=== PATIENT | female | born 1965 | race Caucasian/White ===

== ENCOUNTER 2017-01-31 12:01 | Emergency (ER) | payer MEDICAID ==
[~2017-01-31] VITALS: Ht 157.5 cm; Wt 52.2 kg
[~2017-01-31 12:01] MED LIST: AUGMENTIN 875 M1 TAB PO; BACTRIM DS 8001 TA1 PO; DELTASONE20 MG; DILANTIN100 M1 PO; FOLIC ACID1 M1; NORCO 5/325 MG1 TAB PO; PROAIR HFA0.09 MG/Ac IH; PROVENTIL2.5 MG/3 M INH; ULTRAM50 MG PO; ZOFRAN4 M1 PO
[2017-01-31 12:24] VITALS: BP 114/74
--- NOTE | 2017-01-31 12:25 | NUR ---
PT BIBA TO BED 7 AT THIS TIME.
--- NOTE | 2017-01-31 12:34 | NUR ---
PT BIBA DUE TO SMELL OF ALCOHOL.FOUND PT ON THE STREET LAYING ON THE GROUND.STOPPED ALL MEDS.DENIES PAIN. HX: HTN,SEIZURES,HEART ATTACK,PSYCH.ISSUES.NEGATIVE MLAPSS FIELDPATIENT PRESENTS TO ED WITH.DENIES N/V/D; SKIN IS PINK/WARM/DRY; AAOX4; LUNGS CLEAR BL; HR EVEN AND REGULAR; PT DENIES ANY FEVER, CP, SOB, OR COUGH AT THIS TIME; PATIENT STATES PAIN OF 0/10 AT THIS TIME;PATIENT POSITIONED FOR COMFORT; HOB ELEVATED; BEDRAILS UP X2; BED DOWN. ER MD WILL BE NOTIFY.
--- NOTE | 2017-01-31 12:55 | NUR ---
PT SUDDENLY C/O BACK AND ABDOMINAL PAIN;PAIN SCALE OF 7/10;
[2017-01-31] MEDS ORDERED: KETOROLAC 60 MG/2 ML VIAL IM ONE (13:00)
[2017-01-31] MEDS ORDERED: PHENYTOIN 100 MG CAPER PO ONE (13:00)
[2017-01-31] MEDS ORDERED: MORPHINE SULFATE 4 MG/ML SYR IM ONE (13:40)
--- NOTE | 2017-01-31 13:55 | NUR ---
Patient discharged with v/s stable. Written and verbal after care instructions given and explained. Patient alert, oriented and verbalized understanding of instructions. Ambulatory with steady gait. All questions addressed prior to discharge. ID band removed. Patient advised to follow up with PMD. Rx of DILANTIN given. Patient educated on indication of medication including possible reaction and side effects. Opportunity to ask questions provided and answered.
[2017-01-31 13:59] VITALS: BP 115/56
[2017-03-17] MEDS ORDERED: PANTOPRAZOLE SO40 MG PO (17:05)
[2017-03-17] MEDS ORDERED: NATURE'S BLEND F1 M1 PO (17:05)
[2017-03-17] MEDS ORDERED: NATURE'S BLEND100 M2 PO (17:05)
[2017-03-17] MEDS ORDERED: LISINOPRIL5 M1 PO (17:05)
[2017-03-17] MEDS ORDERED: ATIVAN1 M1 PO (17:05)
[2017-03-17] MEDS ORDERED: DILANTIN100 M1 PO (17:05)
[2017-03-17] MEDS ORDERED: TAB-A-VITE1 TA3 PO (17:05)
== END 2017-01-31 13:55 | disposition home or self-care (01) ==
LOC: MED 12:01
DX: R07.89 Other chest pain (principal); R20.0 Anesthesia of skin; J45.909 Unspecified asthma, uncomplicated; K21.9 Gastro-esophageal reflux disease without esophagitis; I10 Essential (primary) hypertension; F17.210 Nicotine dependence, cigarettes, uncomplicated; Z90.89 Acquired absence of other organs
CPT/HCPCS: 93005; 96372; 99284; J1885; J2270

== ENCOUNTER 2017-02-02 00:55 | Emergency (ER) | payer MEDICAID ==
[~2017-02-02] VITALS: Ht 157.5 cm; Wt 49.9 kg
[2017-02-02 00:59] VITALS: BP 124/85
--- NOTE | 2017-02-02 01:38 | NUR ---
PT TAKEN TO OF
--- NOTE | 2017-02-02 01:40 | NUR ---
PT CAME HERE FOR MEDICATION REFILL, FOR SEIZURE, HIGH BLOOD PRESSURE, POTASSIUM , RANITIDINE
--- NOTE | 2017-02-02 01:43 | NUR ---
Dr. Patel evaluating patient
[2017-02-02] MEDS ORDERED: PHENYTOIN 100 MG CAPER PO ONE (01:50)
[2017-02-02 02:01] VITALS: BP 119/73
--- NOTE | 2017-02-02 02:03 | NUR ---
Patient discharged with v/s stable BY DR. GARCIA. Written and verbal after care instructions given and explained. Patient verbalized understanding. Ambulatory with steady gait. All questions addressed prior to discharge. Advised to follow up with PMD.
--- NOTE | 2017-02-02 02:08 | NUR ---
CALLED PT FAMILY. SPOKE TO FRACISCO KU TO HAT BLOCK MAKER PT 20MINS.
== END 2017-02-02 02:03 | disposition home or self-care (01) ==
LOC: MED 00:55
DX: Z76.0 Encounter for issue of repeat prescription (principal); I10 Essential (primary) hypertension; J45.909 Unspecified asthma, uncomplicated; K21.9 Gastro-esophageal reflux disease without esophagitis
CPT/HCPCS: 99283

== ENCOUNTER 2019-05-29 15:51 | Emergency (ER) | payer SELFPAY ==
[~2019-05-29] VITALS: Ht 157.5 cm; Wt 59.0 kg
[~2019-05-29 15:51] MED LIST changes: +ASPI-1205 PO; -AUGMENTIN 875 M1 TAB PO; -BACTRIM DS 8001 TA1 PO; +COLC0.6C PO; -DELTASONE20 MG; -DILANTIN100 M1 PO; -FOLIC ACID1 M1; +LISI5TAB18 PO; -NORCO 5/325 MG1 TAB PO; +PANT40EC PO; +PHEN100C3 PO; -PROAIR HFA0.09 MG/Ac IH; -PROVENTIL2.5 MG/3 M INH; +THIA100T34 PO; -ULTRAM50 MG PO; -ZOFRAN4 M1 PO
[2019-05-29 16:00] VITALS: BP 121/59
[2019-05-29] MEDS ORDERED: NACL 0.9% 1,000 ML IV ONE (16:10)
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
--- NOTE | 2019-05-29 17:51 | NUR ---
Srinivasa SPLICING MACHINE OPERATOR AUTOMATIC notified pt is demanding to be dc---although friendly with staff, she is decided she wants to go home now. full clear speech, 0riented to name place time n event
--- NOTE | 2019-05-29 17:57 | NUR ---
pt's at bedside---
[2019-05-29 18:01] VITALS: BP 132/81
--- NOTE | 2019-05-29 18:02 | NUR ---
Patient discharged with v/s stable. Written and verbal after care instructions given and explained. Patient alert, oriented and verbalized understanding of instructions. Ambulatory with steady gait. All questions addressed prior to discharge. ID band removed. Patient advised to follow up with PMD. Rx of dilantin given. Patient educated on indication of medication including possible reaction and side effects. Opportunity to ask questions provided and answered.
== END 2019-05-29 18:02 | disposition home or self-care (01) ==
LOC: MED 15:51
DX: F10.129 Alcohol abuse with intoxication, unspecified (principal); R56.9 Unspecified convulsions; J45.909 Unspecified asthma, uncomplicated; I10 Essential (primary) hypertension; F17.210 Nicotine dependence, cigarettes, uncomplicated; Z86.79 Personal history of other diseases of the circulatory system; Z86.73 Personal history of transient ischemic attack (TIA), and cerebral infarction without residual deficits; Z79.82 Long term (current) use of aspirin; Z79.899 Other long term (current) drug therapy; Z90.89 Acquired absence of other organs
CPT/HCPCS: 96360; 99283; J7030

== ENCOUNTER 2019-08-15 10:46 | Inpatient (IN) | payer MEDICAID ==
[~2019-08-15] VITALS: Ht 157.5 cm; Wt 51.7 kg
[2019-08-15 10:57] VITALS: BP 135/99
--- NOTE | 2019-08-15 10:59 | NUR ---
54 Y/O FEMALE PRESENTING WITH C/C OF CHEST PAIN X1 DAY. PER PT ONSET TODAY IN THE AM; QUALITY PRESSURE; RADIATES TO UPPER EXTREMITIES; SEVERITY 06/21. PER PT NKA. MEDICAL HX OF SZ AND CARDIAC PROBLEMS. TAKES MEDS ON REG BASIS BUT CANNOT STATE WHICH ONES SHE TAKES. PT DENIES N/V/D. SIDE RAIL X1.
--- NOTE | 2019-08-15 11:07 | NUR ---
MD BYRNE AT BEDSIDE
[2019-08-15 11:36] LABS: BASOPHILS # (AUTO) 0.1 K/uL (0.00-0.22); BASOPHILS % (AUTO) 2.4 % (0.0-2.0); EOSINOPHILS # (AUTO) 0.1 K/uL (0-0.4); EOSINOPHILS % (AUTO) 1.1 % (0.0-4.0); HEMOGLOBIN 12.3 g/dL (12.0-16.0); LYMPHOCYTES # (AUTO) 0.6 K/uL (2.5-16.5); LYMPHOCYTES % (AUTO) 11.4 % (20.5-51.1); MEAN CORPUSCULAR HEMOGLOBIN 33 pg (27-31); MEAN CORPUSCULAR HGB CONC 33 g/dL (33-37); MEAN CORPUSCULAR VOLUME 100.6 fL (80-94); MONOCYTES # (AUTO) 0.4 K/uL (0.8-1.0); MONOCYTES % (AUTO) 7.2 % (1.7-9.3); NEUTROPHILS # (AUTO) 4.1 K/uL (1.8-7.7); NEUTROPHILS % (AUTO) 77.9 % (42.2-75.2); PLATELET COUNT (AUTO) 201 K/uL (140-450); RED BLOOD CELL COUNT(AUTO) 3.68 MIL/uL (4.20-5.40); WHITE BLOOD COUNT (AUTO) 5.3 K/uL (4.8-10.8)
[2019-08-15 11:57] LABS: LIPASE 126 U/L (73-393)
[2019-08-15 12:02] LABS: ALBUMIN 3.9 g/dL (3.4-5.0); ANION GAP 23.2 (8-16); CARBON DIOXIDE 21.2 mmol/L (21-32); CREATININE 0.5 mg/dL (0.6-1.3); POTASSIUM 3.4 mmol/L (3.5-5.1); TOTAL BILIRUBIN 0.8 mg/dL (0.0-1.0)
--- NOTE | 2019-08-15 12:02 | NUR ---
pt unable to urinate at this time.
--- NOTE | 2019-08-15 12:20 | NUR ---
V/S REASSESS, PT STABLE AND CALM IN BED, PENDING URINE
--- NOTE | 2019-08-15 14:00 | NUR ---
PT ARRIVED ON THE UNIT. VITALS OBTAINED. MRSA SWAB OBTAINED. RECEIVED REPORT FROM DINING ROOM SUPERVISOR. ORIENTED PT TO THE UNIT AND TO THE ROOM. ALL SAFETY MEASURES ARE IN PLACE. WILL CONTINUE TO MONITOR
--- NOTE | 2019-08-15 14:02 | NUR ---
Patient will be admitted to care of DR CRUZ. Admited to TELEMETRY. Will go to [id number]. Belongings list completed. Report to STEPHANIE BARCENAS.
[2019-08-15 14:55] LABS: PROTHROMBIN TIME 10.3 secs (10.8-13.4)
[2019-08-15 15:04] LABS: ALBUMIN 3.9 g/dL (3.4-5.0); ANION GAP 20.6 (8-16); CREATININE 0.5 mg/dL (0.6-1.3); MAGNESIUM 1.6 mg/dL (1.8-2.4); PHOSPHORUS 3.6 mg/dL (2.5-4.9); POTASSIUM 3.6 mmol/L (3.5-5.1); THYROID STIMULATING HORMONE 0.31 uIU/mL (0.34-3.74); TOTAL BILIRUBIN 0.8 mg/dL (0.0-1.0)
[2019-08-15 15:08] LABS: APPEARANCE,URINE CLEAR (CLEAR); BILIRUBIN,URINE NEGATIVE (NEGATIVE); BLOOD, URINE NEGATIVE (NEGATIVE); COLOR,URINE YELLOW (YELLOW); LEUKOCYTE ESTERASE ,URINE NEGATIVE (NEGATIVE); NITRITE, URINE NEGATIVE (NEGATIVE); PH,URINE 6.5 (5.0-9.0); UGLUCOSE NEGATIVE (NEGATIVE)
[2019-08-15 15:15] LABS: BARBITURATE, URINE NEG. ng/ml (NEG <=200); BENZODIAZEPINE, URINE NEG. ng/mL (NEG <=200); CANNABINOID, URINE NEG. ng/mL (NEG <=50); COCAINE, URINE NEG. ng/mL (NEG <=300); OPIATE, URINE NEG. ng/mL (NEG <=2000); PHENCYCLIDINE SCREEN,URINE NEG. ng/mL (NEG <=25)
--- NOTE | 2019-08-15 16:23 | NUR ---
FREQUENT ROUNDING ON PT PT APPEARS STABLE AND IN NO APPARENT DISTRESS. ALL SAFETY MEASURES ARE IN PLACE BANANA BAG INFUSING. WILL CONTINUE TO MONITOR.
--- NOTE | 2019-08-15 19:24 | NUR ---
ENDORSED PT TO PM RN PT APPEARS STABLE AND IN NO APPARENT DISTRESS. ALL SAFETY MEASURES ARE IN PLACE BANANA BAG INFUSING. PT ON ROOM AIR.
--- NOTE | 2019-08-15 19:31 | NUR ---
Received endorsement from AM shift RN; patient A/Ox4, able to make needs known, Bahraini speaking, on bedrest. Patient resting comfortably in bed; introduced self, updated board. No SOB or distress noted, on room air. IV site noted on right antecubital, 20 gauge, running IVF. Bed in the lowest position, call light within reach. Initial assessment done. Will continue to monitor.
[2019-08-15 20:00] VITALS: BP 139/86
--- NOTE | 2019-08-15 20:46 | NUR ---
Vitals taken, no distress noted.
--- NOTE | 2019-08-15 21:46 | NUR ---
Due meds given, tolerated well.
--- NOTE | 2019-08-15 23:40 | NUR ---
Vitals taken, no SOB or distress noted. Patient resting comfortably, visible chest rise and fall noted.
[2019-08-16] VITALS: BP 134/83
--- NOTE | 2019-08-16 02:18 | NUR ---
Patient IV site dislodged at this time. Will re-attempt to insert at a later time.
[2019-08-16 04:00] VITALS: BP 131/82
[2019-08-17] MEDS ORDERED: MAGNESIUM OXIDE 400 MG TAB ONE (16:25)
[2019-08-17] MEDS ORDERED: POTASSIUM CHLORIDE 10 MEQ TABER PO ONE (17:48)
[2019-08-17 20:11] LABS: ANION GAP 13.9 (8-16); CARBON DIOXIDE 26.2 mmol/L (21-32); CHOL/HDL RATIO 1.8 (1-4.5); CREATININE 0.5 mg/dL (0.6-1.3); MAGNESIUM 1.9 mg/dL (1.8-2.4); POTASSIUM 4.1 mmol/L (3.5-5.1)
[2019-08-18 09:17] LABS: BASOPHILS # (AUTO) 0.1 K/uL (0.00-0.22); BASOPHILS % (AUTO) 1.1 % (0.0-2.0); EOSINOPHILS # (AUTO) 0.2 K/uL (0-0.4); EOSINOPHILS % (AUTO) 3.8 % (0.0-4.0); HEMATOCRIT 37.5 % (36-48); HEMOGLOBIN 12.4 g/dL (12.0-16.0); LYMPHOCYTES # (AUTO) 1.4 K/uL (2.5-16.5); LYMPHOCYTES % (AUTO) 29.1 % (20.5-51.1); MEAN CORPUSCULAR HEMOGLOBIN 34 pg (27-31); MEAN CORPUSCULAR HGB CONC 33 g/dL (33-37); MEAN CORPUSCULAR VOLUME 101.5 fL (80-94); MONOCYTES # (AUTO) 0.4 K/uL (0.8-1.0); MONOCYTES % (AUTO) 7.4 % (1.7-9.3); NEUTROPHILS # (AUTO) 2.9 K/uL (1.8-7.7); NEUTROPHILS % (AUTO) 58.6 % (42.2-75.2); PLATELET COUNT (AUTO) 161 K/uL (140-450); RED CELL DISTRIBUTION WIDTH 12.7 % (11.6-13.7); WHITE BLOOD COUNT (AUTO) 4.9 K/uL (4.8-10.8)
[2019-08-18 09:27] LABS: ANION GAP 14.6 (8-16); CARBON DIOXIDE 25.1 mmol/L (21-32); CREATININE 0.5 mg/dL (0.6-1.3); POTASSIUM 3.7 mmol/L (3.5-5.1)
[2019-08-18 09:30] LABS: MAGNESIUM 1.7 mg/dL (1.8-2.4); PHOSPHORUS 3.2 mg/dL (2.5-4.9)
[2019-08-18] MEDS ORDERED: COLC0.6C PO (10:17)
[2019-08-18] MEDS ORDERED: FAMO-90 PO (10:17)
[2019-08-18] MEDS ORDERED: ASPI-1205 PO (10:19)
--- NOTE | 2019-08-18 10:48 | NUR ---
MEDICATIONS ADMINISTERED PER ORDER. PT TOLERATED WELL. NO DISTRESS NOTED. WILL CONTINUE TO MONITOR.
[2019-08-18 11:10] LABS: WHITE BLOOD COUNT (AUTO) 3.6 K/uL (4.8-10.8)
[2019-08-18 11:11] LABS: BASOPHILS % (AUTO) 2.7 % (0.0-2.0); EOSINOPHILS % (AUTO) 3.2 % (0.0-4.0); HEMATOCRIT 34.8 % (36-48); HEMOGLOBIN 11.4 g/dL (12.0-16.0); LYMPHOCYTES # (AUTO) 0.9 K/uL (2.5-16.5); LYMPHOCYTES % (AUTO) 24.7 % (20.5-51.1); MEAN CORPUSCULAR HEMOGLOBIN 33 pg (27-31); MEAN CORPUSCULAR HGB CONC 33 g/dL (33-37); MEAN CORPUSCULAR VOLUME 101.6 fL (80-94); MONOCYTES % (AUTO) 13.1 % (1.7-9.3); NEUTROPHILS % (AUTO) 56.3 % (42.2-75.2); PLATELET COUNT (AUTO) 181 K/uL (140-450); RED BLOOD CELL COUNT(AUTO) 3.42 MIL/uL (4.20-5.40)
[2019-08-18 11:12] LABS: BASOPHILS # (AUTO) 0.1 K/uL (0.00-0.22); EOSINOPHILS # (AUTO) 0.1 K/uL (0-0.4); MONOCYTES # (AUTO) 0.5 K/uL (0.8-1.0)
[2019-08-18 12:06] VITALS: BP 120/75
--- NOTE | 2019-08-18 12:12 | NUR ---
VITAL SIGNS TAKEN AT THIS TIME. NO DISTRESS NOTED. PT DENIES PAIN. WILL CONTINUE TO MONITOR.
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
[2019-08-19 17:08] LABS: ANION GAP 14.4 (8-16); CARBON DIOXIDE 24.9 mmol/L (21-32); CREATININE 0.6 mg/dL (0.6-1.3); POTASSIUM 3.3 mmol/L (3.5-5.1)
[2019-08-19 17:09] LABS: MAGNESIUM 1.7 mg/dL (1.8-2.4); PHOSPHORUS 2.9 mg/dL (2.5-4.9)
[2019-08-21 19:55] LABS: HEMOGLOBIN 12.2 g/dL (12.0-16.0); RED BLOOD CELL COUNT(AUTO) 3.64 MIL/uL (4.20-5.40); WHITE BLOOD COUNT (AUTO) 4.4 K/uL (4.8-10.8)
[2019-08-21 19:56] LABS: MEAN CORPUSCULAR HEMOGLOBIN 34 pg (27-31); MEAN CORPUSCULAR HGB CONC 33 g/dL (33-37); MEAN CORPUSCULAR VOLUME 101.6 fL (80-94); PLATELET COUNT (AUTO) 180 K/uL (140-450); RED CELL DISTRIBUTION WIDTH 12.8 % (11.6-13.7)
[2019-08-21 19:57] LABS: EOSINOPHILS % (AUTO) 3.5 % (0.0-4.0); LYMPHOCYTES % (AUTO) 24.5 % (20.5-51.1); MONOCYTES % (AUTO) 8.7 % (1.7-9.3); NEUTROPHILS % (AUTO) 61.9 % (42.2-75.2)
[2019-08-21 19:58] LABS: BASOPHILS # (AUTO) 0.1 K/uL (0.00-0.22); BASOPHILS % (AUTO) 1.4 % (0.0-2.0); EOSINOPHILS # (AUTO) 0.2 K/uL (0-0.4); LYMPHOCYTES # (AUTO) 1.1 K/uL (2.5-16.5); MONOCYTES # (AUTO) 0.4 K/uL (0.8-1.0); NEUTROPHILS # (AUTO) 2.7 K/uL (1.8-7.7)
== END 2019-08-18 13:20 | disposition home or self-care (01) | DRG 207 ==
LOC: MED 10:46 → MTU 13:23
PROVIDERS: ADMIT Family Medicine; ATTEND Family Medicine
DX: I31.9 Disease of pericardium, unspecified (principal); E83.42 Hypomagnesemia; I10 Essential (primary) hypertension; E87.6 Hypokalemia; F17.210 Nicotine dependence, cigarettes, uncomplicated; J45.909 Unspecified asthma, uncomplicated; G40.909 Epilepsy, unspecified, not intractable, without status epilepticus; K21.9 Gastro-esophageal reflux disease without esophagitis; F15.10 Other stimulant abuse, uncomplicated; Z79.82 Long term (current) use of aspirin; Z86.73 Personal history of transient ischemic attack (TIA), and cerebral infarction without residual deficits; Z79.899 Other long term (current) drug therapy; Z90.49 Acquired absence of other specified parts of digestive tract; Z80.41 Family history of malignant neoplasm of ovary; Z82.5 Family history of asthma and other chronic lower respiratory diseases; Z72.89 Other problems related to lifestyle
CPT/HCPCS: 36415; 71045; 80048; 80053; 80185; 80305; 81003; 83036; 83605; 83690; 83735; 83880; 84100; 84443; 84484; 85025; 85610; 85730; 87040; 87081; 93005; 96374; 96375; 99285; A9153; G0482; J1644; J2270; J2405; J3411; J3475; J3490; J7030; Q0092

== ENCOUNTER 2019-08-26 08:19 | Emergency (ER) | payer MEDICAID ==
[~2019-08-26] VITALS: Ht 157.5 cm; Wt 52.2 kg
[~2019-08-26 08:19] MED LIST changes: +FAMO-90 PO; -PANT40EC PO
--- NOTE | 2019-08-26 08:22 | NUR ---
JOSE ANGEL KLEIN ALS TO ER BED 07
[2019-08-26 08:28] VITALS: BP 117/80
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
[2019-08-26] MEDS ORDERED: KETOROLAC 60 MG/2 ML VIAL IM ONE (08:45)
--- NOTE | 2019-08-26 08:55 | NUR ---
pt went to xray via [facility].pt awake , alert.
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
--- NOTE | 2019-08-26 09:34 | NUR ---
PATIENT BACK FROM CT VIA DEW[facility] Addendum: 08/26/19 at 0934 by LUIS ANTONIO XRAY NOT CT
--- NOTE | 2019-08-26 09:57 | NUR ---
AIDE BALDERAS J SLADE AT BEDSIDE.
--- NOTE | 2019-08-26 10:10 | NUR ---
nadr at this time
[2019-08-26 10:13] VITALS: BP 120/80
--- NOTE | 2019-08-26 10:13 | NUR ---
Patient discharged with v/s stable. Written and verbal after care instructions given and explained cervical sprain. Patient alert, oriented and verbalized understanding of instructions. Ambulatory with steady gait. All questions addressed prior to discharge. ID band removed. Patient advised to follow up with PMD. Rx of motrin given. Patient educated on indication of medication including possible reaction and side effects. Opportunity to ask questions provided and answered.Pt awake ,alert , ambulatory with steady gait ,pain level 4/10.
== END 2019-08-26 10:13 | disposition home or self-care (01) ==
LOC: MED 08:19
DX: S16.1XXA Strain of muscle, fascia and tendon at neck level, initial encounter (principal); I10 Essential (primary) hypertension; F17.210 Nicotine dependence, cigarettes, uncomplicated; Y08.09XA Assault by strike by other specified type of sport equipment, initial encounter; Y93.89 Activity, other specified; Y92.89 Other specified places as the place of occurrence of the external cause; Y99.8 Other external cause status; Z79.899 Other long term (current) drug therapy; Z79.82 Long term (current) use of aspirin; Z98.890 Other specified postprocedural states
CPT/HCPCS: 71045; 72040; 90471; 90715; 96372; 99283; J1885

== ENCOUNTER 2019-11-23 21:54 | Emergency (ER) | payer MEDICAID ==
[~2019-11-23] VITALS: Ht 154.9 cm; Wt 52.2 kg
--- NOTE | 2019-11-23 22:35 | NUR ---
PT SEATED UPRIGHT IN BED AND ATTACHED TO MONITORING SYSTEM. SEIZURE PRECAUTIONS IN PLACE. WILL CONTINUE TO MONITOR.
[2019-11-23 22:36] VITALS: BP 123/77
--- NOTE | 2019-11-23 23:33 | NUR ---
DR. MITCHELL EVALUATING PT AT BEDSIDE.
[2019-11-23] MEDS ORDERED: KETOROLAC 30 MG/ML VIAL IVP ONE (23:35)
[2019-11-23] MEDS ORDERED: ACETAMINOPHEN EXTRA STRENGTH 500 MG TAB PO ONE (23:35)
[2019-11-23] MEDS ORDERED: NACL 0.9% 2,000 ML IV ONE (23:35)
--- NOTE | 2019-11-23 23:58 | NUR ---
XR AT BEDSIDE.
[2019-11-23 23:59] LABS: HEMATOCRIT 40.4 % (36-48); HEMOGLOBIN 13.5 g/dL (12.0-16.0); MEAN CORPUSCULAR HEMOGLOBIN 32 pg (27-31); MEAN CORPUSCULAR HGB CONC 34 g/dL (33-37); MEAN CORPUSCULAR VOLUME 94.5 fL (80-94); PLATELET COUNT (AUTO) 215 K/uL (140-450); RED BLOOD CELL COUNT(AUTO) 4.27 MIL/uL (4.20-5.40); RED CELL DISTRIBUTION WIDTH 13.8 % (11.6-13.7); WHITE BLOOD COUNT (AUTO) 11.9 K/uL (4.8-10.8)
[2019-11-24 00:18] LABS: PROTHROMBIN TIME 10.1 secs (10.8-13.4)
--- NOTE | 2019-11-24 00:23 | NUR ---
DR. MITCHELL GAVE PERMISSION FOR PT TO EAT.
[2019-11-24 00:28] LABS: LYMPHOCYTES % (MANUAL) 10 % (20-46); MONOCYTES % (MANUAL) 9 % (5-12)
[2019-11-24 00:30] LABS: ALBUMIN 3.3 g/dL (3.4-5.0); ANION GAP 16.7 (8-16); CREATININE 1.1 mg/dL (0.6-1.3); TOTAL BILIRUBIN 1.2 mg/dL (0.0-1.0)
[2019-11-24 00:34] LABS: POTASSIUM 2.7 mmol/L (3.5-5.1)
[2019-11-24] MEDS ORDERED: SODIUM PHOS / POTASSIUM PHOS 1 PKT PDR PO STA (00:34)
[2019-11-24] MEDS ORDERED: POTASSIUM CHL 20 MEQ/NACL 0.9% 1,000 ML IV ONE (00:35)
--- NOTE | 2019-11-24 00:40 | NUR ---
PT HR AT 95. PT REPORTS MINIMAL RELEIF OF PAIN. O2 SAT MAINTAINED AT 97% ON RA.
[2019-11-24] MEDS ORDERED: KCL 20 MEQ/WATER INJ PREMIX 100 ML IV ONE ×2 (00:46→01:00)
--- NOTE | 2019-11-24 01:16 | NUR ---
CONSENT SIGNED BY PT FOR CT-ANGIO.
--- NOTE | 2019-11-24 01:25 | NUR ---
PT REPORTS PAIN, DR. MITCHELL NOTIFIED.
[2019-11-24] MEDS ORDERED: HYDROcodone/APAP 5/325 MG 1 TAB TAB PO ONE (01:50)
--- NOTE | 2019-11-24 02:35 | NUR ---
PT SEEN WITH EYES CLOSED. VISIBLE CHEST RISE AND FALL NOTED. NSR AT 94. RR EVEN AN UNLABORED. BEDRAIL X2 UP. WILL CONTINUE TO MONITOR
--- NOTE | 2019-11-24 03:44 | NUR ---
LAB AT BEDSIDE.
[2019-11-24 04:12] LABS: ANION GAP 14.4 (8-16); CREATININE 1.1 mg/dL (0.6-1.3)
[2019-11-24 04:14] LABS: POTASSIUM 2.4 mmol/L (3.5-5.1)
--- NOTE | 2019-11-24 04:15 | NUR ---
CRITICAL LAB POTASSIUM 2.4 RECE[address]ED FROM RADHA GIBSON[address] DR. MITCHELL NOTIFIED.
[2019-11-24] MEDS ORDERED: POTASSIUM CHLORIDE 10 MEQ TABER PO STA ×2 (04:33)
[2019-11-24] MEDS ORDERED: ONDANSETRON 4 MG/2 ML VIAL IVP ONE (04:40)
--- NOTE | 2019-11-24 05:34 | NUR ---
PT TRANSPORTED TO [facility] VIA GURNEY BY [facility] FOR CT W/ CONTRAST.
--- NOTE | 2019-11-24 07:19 | NUR ---
REPORT GIVEN TO ROBERT BARCENAS FOR CONTINUITY OF CARE.
[2019-11-24] MEDS ORDERED: POTASSIUM CHLORIDE 10 MEQ TABER PO ONE ×2 (08:07→16:40)
--- NOTE | 2019-11-24 08:16 | NUR ---
CT DONE AND SENT BACK TO ER @0800. K-RIDER GIVEN PO.
[2019-11-24 09:45] LABS: ANION GAP 14.7 (8-16); CARBON DIOXIDE 23.2 mmol/L (21-32); CREATININE 1.1 mg/dL (0.6-1.3)
[2019-11-24 09:54] LABS: POTASSIUM 2.9 mmol/L (3.5-5.1)
--- NOTE | 2019-11-24 10:21 | NUR ---
PT WAS DECIDED TO TRANSFER TO [facility] UNDER DR. HOPKINS. INSURANCE WAS AUTHORISED. ROOM 120A.
[2019-11-24] MEDS ORDERED: KETOROLAC 30 MG/ML VIAL IVP ONE (10:30)
[2019-11-24] MEDS ORDERED: PANTOPRAZOLE 40 MG INJ VIAL IVP ONE (12:35)
[2019-11-24] MEDS ORDERED: MAG SULF 2000 MG/WATER PREMIX 50 ML IV ONE (13:15)
--- NOTE | 2019-11-24 13:58 | NUR ---
REGULAR DIET ORDERED PER DR. MCNAIR VERBAL ORDER.
--- NOTE | 2019-11-24 14:06 | NUR ---
PER PT'S REQUEST, LUNCH TRAY OFFERED TO PT.
--- NOTE | 2019-11-24 14:30 | NUR ---
PT IS STILL WAITING FOR TRANSFER AUTHORIZATION. REPORT WAS CALLED. [phone] TO LAYLA. NURSING SUPERVISER.
[2019-11-24] MEDS ORDERED: MORPHINE SULFATE 2 MG/ML SYR IVP ONE (17:45)
--- NOTE | 2019-11-24 17:45 | NUR ---
stat labs drawn and sent to lab.
--- NOTE | 2019-11-24 17:52 | NUR ---
CO PAIN AGAIN, DR. KIRK AWARE. MORPHINE 1MG IVP ORDERED AND GIVEN. DINNER TRAY DELIVED. PT IS EATING WELL.
--- NOTE | 2019-11-24 18:29 | NUR ---
DR. KIRK REASSESSED PT THEN DECIDED TO D/C PT HOME. Patient discharged with v/s stable. Written and verbal after care instructions given and explained. Patient alert, oriented and verbalized understanding of instructions. Ambulatory with steady gait. All questions addressed prior to discharge. ID band removed. Patient advised to follow up with PMD. Rx of TRAMADOL, PROTONIX AND POTASSIUM given. Patient educated on indication of medication including possible reaction and side effects. Opportunity to ask questions provided and answered.
[2019-11-24 18:31] VITALS: BP 112/75
--- NOTE | 2019-12-05 13:17 | NUR ---
LATE ENTRY- MAGNESIUM SULFATE MEDICATION ENDED AT 1514ON 11/24/19 DOCUMENTED IN CHART
--- NOTE | 2019-12-06 07:01 | NUR ---
LATE ENTRY- POTASSIUM CHLORIDE PREMIX ENDED AT 0310 ON 11/24/19.
== END 2019-11-24 18:29 | disposition home or self-care (01) ==
LOC: MED 21:54
DX: R00.0 Tachycardia, unspecified (principal); E87.6 Hypokalemia; R79.1 Abnormal coagulation profile; I10 Essential (primary) hypertension; Z86.73 Personal history of transient ischemic attack (TIA), and cerebral infarction without residual deficits; Z79.82 Long term (current) use of aspirin; Z79.899 Other long term (current) drug therapy
CPT/HCPCS: 36415; 71045; 80048; 80053; 83735; 83880; 84132; 84484; 85025; 85379; 85610; 85730; 93005; 96361; 96365; 96366; 96367; 96375; 96376; 99285; C9113; J1885; J2270; J2405; J3475; J3480; J7030; Q0092

== ENCOUNTER 2020-04-10 01:10 | Emergency (ER) | payer MEDICAID, SELFPAY ==
[~2020-04-10] VITALS: Ht 157.5 cm; Wt 52.2 kg
[2020-04-10 01:15] VITALS: BP 151/72
--- NOTE | 2020-04-10 01:15 | NUR ---
C/O SOB X 3 HRS , PT STATES + N/V/D/SUBJ FEVER / BODY ACHES, CHILLS, PRODUCTIVE COUGH / CP THAT RADIATES TO BOTH SHOULDERS. PT STATES 10/10 CHEST PAIN. PT STATES SHE HAS BEEN DRINKING TODAY , VODKA AND BEER. PMH: STROKE, EPILEPSY, HTN, HEART MURMUR NKA PT STATES SHE TOOK HER SEIZURE MEDICATION LAST NIGHT.
--- NOTE | 2020-04-10 01:34 | NUR ---
Dr. Shane examining patient.
--- NOTE | 2020-04-10 02:00 | NUR ---
PT RETURN FROM XRAY
--- NOTE | 2020-04-10 02:21 | NUR ---
COVID SWAB COLLECTED AND WALKED TO LAB.
[2020-04-10 02:49] VITALS: BP 101/76
--- NOTE | 2020-04-10 02:49 | NUR ---
PATIENT ELOPED FROM FACILITY. DISCHARGE INSTRUCTIONS NOT GIVEN TO PATIENT. DR. MITCHELL NOTIFIED.
== END 2020-04-10 02:49 | disposition left against medical advice (07) ==
LOC: MED 01:10
DX: R06.02 Shortness of breath (principal); Z20.828 Contact with and (suspected) exposure to other viral communicable diseases; R05 Cough; J34.89 Other specified disorders of nose and nasal sinuses; R21 Rash and other nonspecific skin eruption; I10 Essential (primary) hypertension; F17.200 Nicotine dependence, unspecified, uncomplicated; Z86.73 Personal history of transient ischemic attack (TIA), and cerebral infarction without residual deficits; Z79.82 Long term (current) use of aspirin; Z79.899 Other long term (current) drug therapy
CPT/HCPCS: 71045; 99284; U0003

== ENCOUNTER 2020-04-21 19:45 | Emergency (ER) | payer MEDICAID, SELFPAY ==
[~2020-04-21] VITALS: Ht 157.5 cm; Wt 54.4 kg
[2020-04-21 19:55] VITALS: BP 150/82
--- NOTE | 2020-04-21 20:15 | NUR ---
PT REQUESTING INFORMAION ABOUT IN ED. PT STATES SHE WANTS TO COME BACK TO SEE HIM. PT IS NEXT OF KIN ON PAPERWORK. SWAPNA RICH SPOKE WITH PT. PT STATES THANK YOU AND DOES NOT WANT TO BE SEEN ANYMORE. PT ELOPED OUT OF LOBBY. DR. HUMPHREY AWARE.
--- NOTE | 2020-04-21 20:17 | NUR ---
2017: PT CALLED OUTSIDE AND CHECK IN RESTROOM, NO ANSWER 2021: PT ATTEMPT TO CHECK OUTSIDE, AND CHECK RESTROOM NO ANSWER, PT LWBS DR HUMPHREY MADE AWARE
== END 2020-04-21 20:22 | disposition left against medical advice (07) ==
LOC: MED 19:45
DX: R51 Headache (principal); Z53.21 Procedure and treatment not carried out due to patient leaving prior to being seen by health care provider

== ENCOUNTER 2020-04-29 03:45 | Emergency (ER) | payer MEDICAID, SELFPAY ==
[~2020-04-29] VITALS: Ht 157.5 cm; Wt 52.2 kg
--- NOTE | 2020-04-29 03:49 | NUR ---
PT TAKEN TO BED 5
[2020-04-29 03:50] VITALS: BP 106/77
--- NOTE | 2020-04-29 03:59 | NUR ---
54 Y/O FEMALE PRESENTS TO ER WITH C/O SEIZURE ACTIVITY BEFORE COMING INTO ER X1 HR. 10/10 BILATERAL ARM, AND CHEST PAIN. PT STATES SHE HAS BEEN DRINKING "VODKA, AND ORANGE JUICE ALL DAY." C/O NAUSEA, VOMITING, DIARRHEA, HEADACHE, SOB, COUGH, FEVER, ANC CHILLS. DENIES INJURY TO HEAD, LOC, OR BILATERAL ARMS, OR CHEST. VSS, R/R EQUAL, AND UNLABORED. NO POSTICTAL PATTERN, OR BEHAVIOR NOTED. SEIZURE PRECAUTIONS IN PLACE. SIDE RAIL X2, BED IN LOW POSITION WILL CONTINUE TO MONITOR. PMH: SEIZURE DISORDER, PANCREATITIS, NKD
[2020-04-29] MEDS ORDERED: diphenhydrAMINE 50 MG/ML VIAL IVP ONE (04:25)
[2020-04-29] MEDS ORDERED: MORPHINE SULFATE 4 MG/ML SYR IVP ONE (04:25)
[2020-04-29] MEDS ORDERED: ONDANSETRON 4 MG/2 ML VIAL IVP ONE (04:25)
--- NOTE | 2020-04-29 04:29 | NUR ---
Dr. Miller examining patient.
[2020-04-29] MEDS ORDERED: KETOROLAC 60 MG/2 ML VIAL IM ONE (04:35)
[2020-04-29 04:48] VITALS: BP 106/77
== END 2020-04-29 04:48 | disposition home or self-care (01) ==
LOC: MED 03:45
DX: R07.89 Other chest pain (principal); R21 Rash and other nonspecific skin eruption; R56.9 Unspecified convulsions; F10.129 Alcohol abuse with intoxication, unspecified; I10 Essential (primary) hypertension; Z86.73 Personal history of transient ischemic attack (TIA), and cerebral infarction without residual deficits; Z90.49 Acquired absence of other specified parts of digestive tract; Z98.890 Other specified postprocedural states; Z79.899 Other long term (current) drug therapy; Z79.82 Long term (current) use of aspirin
CPT/HCPCS: 96372; 99283; J1885

== ENCOUNTER 2020-11-02 20:54 | Emergency (ER) | payer MEDICAID, SELFPAY ==
[~2020-11-02] VITALS: Ht 157.5 cm; Wt 54.4 kg
[2020-11-02 21:12] VITALS: BP 133/86
--- NOTE | 2020-11-02 21:12 | NUR ---
TO BED AMBULATORY
--- NOTE | 2020-11-02 21:15 | NUR ---
PT DECIDED TO LEAVE WITHOUT BEING SEEN. DID NOT WANT TO BE SEEN BY MD ESTHETICIAN/SPA COORDINATOR. PT AMBULATED WITH STEADY GAIT UPON D/C.
== END 2020-11-02 21:15 | disposition left against medical advice (07) ==
LOC: MED 20:54
DX: R06.02 Shortness of breath (principal); Z53.21 Procedure and treatment not carried out due to patient leaving prior to being seen by health care provider

== ENCOUNTER 2021-03-15 09:20 | Inpatient (IN) | payer MEDICAID ==
[~2021-03-15] VITALS: Ht 157.5 cm; Wt 55.8 kg
[2021-03-15 09:38] VITALS: BP 116/71
--- NOTE | 2021-03-15 10:15 | NUR ---
Dr. Shane is evaluating the patient at bedside.
[2021-03-15] MEDS ORDERED: ERYTHROMYCIN 0.5% OPTH OINT 1 GM TUBE OP ONE (10:25)
--- NOTE | 2021-03-15 10:50 | NUR ---
computer engineering technologist at bedside.
[2021-03-15 11:02] LABS: BASOPHILS # (AUTO) 0.1 K/uL (0.00-0.22); EOSINOPHILS # (AUTO) 0.1 K/uL (0-0.4); EOSINOPHILS % (AUTO) 1.5 % (0.0-4.0); HEMOGLOBIN 14.7 g/dL (12.0-16.0); LYMPHOCYTES % (AUTO) 18.1 % (20.5-51.1); MEAN CORPUSCULAR HEMOGLOBIN 36 pg (27-31); MEAN CORPUSCULAR HGB CONC 34 g/dL (33-37); MEAN CORPUSCULAR VOLUME 105.6 fL (80-94); MONOCYTES # (AUTO) 0.3 K/uL (0.8-1.0); MONOCYTES % (AUTO) 6.2 % (1.7-9.3); NEUTROPHILS % (AUTO) 72.2 % (42.2-75.2); PLATELET COUNT (AUTO) 156 K/uL (140-450); RED BLOOD CELL COUNT(AUTO) 4.07 MIL/uL (4.20-5.40); RED CELL DISTRIBUTION WIDTH 12.8 % (11.6-13.7); WHITE BLOOD COUNT (AUTO) 5.6 K/uL (4.8-10.8)
--- NOTE | 2021-03-15 11:07 | NUR ---
55 YEAR OLD FEMALE COMPLAINS OF CHEST PAIN THAT RADIATES TO LEFT ARM. PT STATES THAT CHEST PAIN HAS BEEN HAPPENING FOR MONTHS BUT HAS GOTTEN WORSE TODAY. PT ALSO COMPLAINS OF PALPITATIONS WITH SOB. HR 135, BP 109/79 WITH PT ON BEDSIDE MONITOR. ERMD AWARE OF PT STATUS. PT DENIES N/V/D. PT AOX4, BREATHING EVEN AND UNLABORED, SKIN WARM AND DRY. BED IN LOWEST POSITION, LOCKED, BED RAIL UPX1. PMH - HTN, SEIZURES, ASTHMA, STROKE, STEMI, ALCOHOLISM ALLERGIES - NKA
[2021-03-15 11:12] LABS: PROTHROMBIN TIME 10.8 secs (10.8-13.4)
[2021-03-15 11:13] LABS: ALBUMIN 4.4 g/dL (3.4-5.0); ANION GAP 16.7 (8-16); CARBON DIOXIDE 27.9 mmol/L (21-32); CREATININE 0.9 mg/dL (0.6-1.3); TOTAL BILIRUBIN 0.6 mg/dL (0.0-1.0)
[2021-03-15 11:18] LABS: POTASSIUM 2.6 mmol/L (3.5-5.1)
[2021-03-15] MEDS ORDERED: KCL 20 MEQ/WATER INJ PREMIX 200 ML IV ONE (11:20)
--- NOTE | 2021-03-15 11:24 | NUR ---
PT REPORTS SHE IS NON-COMPLIANT WITH MEDICATIONS AND IS UNAWARE OF WHAT SHE TAKES.
[2021-03-15] MEDS ORDERED: MAGNESIUM OXIDE 400 MG TAB PO SCH (12:00)
[2021-03-15] MEDS ORDERED: POTASSIUM CHLORIDE 10 MEQ TABER PO SCH (12:00)
--- NOTE | 2021-03-15 12:15 | NUR ---
RECEIVED REPORT ER NURSE. ADMITTED 55Y/O FEMALE FROM HOME WITH CC OF CHEST PAIN RADIATING TO LEFT ARM, SOB AND PALPITATIONS. ADMITTING DX OF HYPOKALEMIA. HX HTN, SEIZURES, FALLS, ASTHMA, STROKE, NSTEMI, ALCOHOLISM, METH USE, ANS SMOKER. AOX4, ABLE TO MAKE NEEDS KNOWN, AMBULATORY, BOWEL AND BLADDER CONTINENT. NO C/O PAIN, NO SOB, ON ROOM AIR. IV SITE LW 22G INFUSING K-RIDER. POC DISCUSSED PT VERBALIZED UNDERSTANDING. SAFETY PRECAUTIONS IN PLACE. CALL LIGHT WITHIN REACH. WILL CONTINUE TO MONITOR
--- NOTE | 2021-03-15 12:20 | NUR ---
Patient will be admitted to care of Dr Esposito. Admited to Tele. Will go to room 115. Belongings list completed. Report to Marco BARCENAS.
[2021-03-15] MEDS: NACL 0.9% 1,000 ML IV SCH (12:25)
[2021-03-15] MEDS ORDERED: SODIUM PHOS / POTASSIUM PHOS 1 PKT PDR PO PRN (12:25)
[2021-03-15] MEDS ORDERED: POTASSIUM CHLORIDE 40 MEQ, LIDOCAINE MPF 1% 25 MG in NACL 0.9% 250 ML IV PRN (12:25)
[2021-03-15] MEDS: PANTOPRAZOLE 40 MG TABEC PO SCH (12:25)
[2021-03-15] MEDS ORDERED: MAG SULF 2000 MG/WATER PREMIX 50 ML IV PRN (12:25)
[2021-03-15] MEDS ORDERED: ACETAMINOPHEN 325 MG TAB PO PRN (12:25)
[2021-03-15] MEDS ORDERED: DOCUSATE SODIUM 100 MG GELCAP PO PRN (12:25)
[2021-03-15] MEDS ORDERED: ONDANSETRON 4 MG/2 ML VIAL IM/IVP PRN (12:25)
[2021-03-15 12:58] VITALS: BP 128/67
--- NOTE | 2021-03-15 14:30 | NUR ---
PT ASLEEP IN BED.NO APPARENT DISTRESS. AT BEDSIDE
[2021-03-15 16:00] VITALS: BP 112/75
[2021-03-15 16:44] LABS: ANION GAP 14.7 (8-16); CARBON DIOXIDE 26.7 mmol/L (21-32); CREATININE 0.8 mg/dL (0.6-1.3); POTASSIUM 3.4 mmol/L (3.5-5.1)
[2021-03-15] MEDS ORDERED: LORazepam 2 MG/ML VIAL IM/IVP PRN (16:45)
[2021-03-15] MEDS ORDERED: PHENYTOIN 100 MG CAPER PO SCH (17:00)
--- NOTE | 2021-03-15 17:30 | NUR ---
WITH X2 EPISODE OF LOOSE TO FORMED STOOL
[2021-03-15] MEDS: chlordiazePOXIDE 25 MG CAP PO SCH (17:36)
--- NOTE | 2021-03-15 18:15 | NUR ---
ANDREW HANGED FOR MAG 1.7
[2021-03-15] MEDS: MORPHINE SULFATE 2 MG/ML SYR IVP PRN (18:58)
--- NOTE | 2021-03-15 19:01 | NUR ---
WITH C/O DULL ACHING CHEST PAIN AND ABD PAIN 8/10. MORPHINE 1MG GIVEN ORDERED
--- NOTE | 2021-03-15 19:10 | NUR ---
RECIEVED BEDSIDE ENDORSEMENT FROM DAY SHIFT RN, PT A&OX4, ABLE TO MAKE NEEDS KNOWN AND FOLLOWS SIMPLE COMMANDS, ABULATES TO URINAL W/ ASSISTANCE, ST ON MONITOR, ON ROOM AIR, FLACC 0, AFEBRILE, SKIH WARM DRY AND INTACT, LW 22 G PIV INFUSING NS @ 80MLS/HR, NO SIGNS OF ACUTE DISTRESS, SAFETY MEASURES IN PLACE, WILL CONTINUE WITH CURRENT POC
[2021-03-15 19:44] LABS: AMYLASE 43 U/L (25-115); LIPASE 563 U/L (73-393)
[2021-03-15 20:00] VITALS: BP 130/84
--- NOTE | 2021-03-15 20:19 | NUR ---
ASSISTED PT TO THE URINAL, NO SIGNS OF ACUTE DISTRESS
--- NOTE | 2021-03-15 20:44 | NUR ---
PT CURRENTLY EATING DINNER AND WATCHING TV
[2021-03-15] MEDS: HYDROcodone/APAP 5/325 MG 1 TAB TAB PO PRN (21:33)
--- NOTE | 2021-03-15 22:25 | NUR ---
PT APPEARS TO BE ASLEEP AND SHOWING NO SIGNS OF ACUTE DISTRESS
[2021-03-16] VITALS: BP 120/79
[2021-03-16] MEDS: NACL 0.9% 1,000 ML IV SCH ×3 (00:55→22:22)
--- NOTE | 2021-03-16 01:04 | NUR ---
ASSISTED THE PT TO THE URINAL, PT ABLE TO WALK WITH ASSISTANCE
[2021-03-16] MEDS: HYDROcodone/APAP 5/325 MG 1 TAB TAB PO PRN ×2 (02:52→22:24)
--- NOTE | 2021-03-16 03:31 | NUR ---
PT APPEARS TO BE ASLEEP AND SHOWING NO SIGNS OF ACUTE DISTRESS
[2021-03-16 04:00] VITALS: BP 126/77
--- NOTE | 2021-03-16 05:42 | NUR ---
PT RESTING. WATCHING TV, FLACC O AND SHOWING NO SIGNS OF ACUTE DISTRESS
[2021-03-16 07:06] LABS: ANION GAP 14.6 (8-16); CARBON DIOXIDE 27.8 mmol/L (21-32); CREATININE 0.7 mg/dL (0.6-1.3); POTASSIUM 3.4 mmol/L (3.5-5.1)
--- NOTE | 2021-03-16 07:10 | NUR ---
RECEIVED BEDSIDE REPORT FROM CLINICAL TRIAL COORDINATOR NURSE FOR CONTINUITY OF CARE. PT IS ASLEEP. CHEST RISE AND FALL IS SYMMETRICAL. ON RA WITH BREATHING UNLABORED. ON TELE MONITORING. PT IS AMBULATORY INDEPENDENTLY. SKIN IS WARM, DRY, AND INTACT. IV IS IN THE LEFT WRIST 22 GAUGE INFUSING FLUIDS ORDERED. PT IS STABLE AT THIS TIME. PLAN OF CARE DISCUSSED.
[2021-03-16 07:17] LABS: BASOPHILS # (AUTO) 0.1 K/uL (0.00-0.22); BASOPHILS % (AUTO) 1.5 % (0.0-2.0); EOSINOPHILS # (AUTO) 0.1 K/uL (0-0.4); EOSINOPHILS % (AUTO) 1.4 % (0.0-4.0); HEMATOCRIT 33.7 % (36-48); HEMOGLOBIN 11.5 g/dL (12.0-16.0); LYMPHOCYTES # (AUTO) 0.7 K/uL (2.5-16.5); LYMPHOCYTES % (AUTO) 13.5 % (20.5-51.1); MEAN CORPUSCULAR HEMOGLOBIN 36 pg (27-31); MEAN CORPUSCULAR HGB CONC 34 g/dL (33-37); MONOCYTES # (AUTO) 0.4 K/uL (0.8-1.0); MONOCYTES % (AUTO) 8.4 % (1.7-9.3); NEUTROPHILS # (AUTO) 3.7 K/uL (1.8-7.7); NEUTROPHILS % (AUTO) 75.2 % (42.2-75.2); PLATELET COUNT (AUTO) 111 K/uL (140-450); RED BLOOD CELL COUNT(AUTO) 3.18 MIL/uL (4.20-5.40); RED CELL DISTRIBUTION WIDTH 12.7 % (11.6-13.7)
--- NOTE | 2021-03-16 07:27 | NUR ---
PATIENT HAS BEEN SCREENED AND CATEGORIZED LOW NUTRITION RISK. PATIENT WILL BE SEEN WITHIN 7 DAYS OF ADMISSION. 03/22/21 VESTA HAWK MS, RDN
--- NOTE | 2021-03-16 07:35 | NUR ---
ENDORSED TO DAY SHIFT RN FOR CONTINUITY OF CARE
[2021-03-16 08:00] VITALS: BP 125/75
--- NOTE | 2021-03-16 09:00 | NUR ---
PT IS AWAKE AND ALERT. A&OX4. ON RA WITH BREATHING UNLABORED. PT WAS DISCONNECTED FROM IV TO USE THE RESTROOM. IV IS PATENT AND FLUSHING WELL. NO DISTRESS AT THIS TIME.
[2021-03-16] MEDS: THIAMINE 100 MG TAB PO SCH (10:05)
[2021-03-16] MEDS: FOLIC ACID 1 MG TAB PO SCH (10:05)
[2021-03-16] MEDS: MULTIVITAMIN 1 TAB PO SCH (10:06)
[2021-03-16] MEDS: PANTOPRAZOLE 40 MG TABEC PO SCH (10:06)
[2021-03-16] MEDS: chlordiazePOXIDE 25 MG CAP PO SCH ×3 (10:06→17:11)
--- NOTE | 2021-03-16 10:08 | NUR ---
PT'S POTASSIUM IS 3.4. POTASSIUM 40 MEQ IV WAS GIVEN ORDERED. VERIFIED BY SECOND RN. MEDICATION EDUCATION WAS PROVIDED AND PT VERBALIZED UNDERSTANDING.
[2021-03-16] MEDS: MORPHINE SULFATE 2 MG/ML SYR IVP PRN ×2 (10:12→18:53)
--- NOTE | 2021-03-16 10:12 | NUR ---
PT STATES SHE IS HAVING AN ACHING PAIN ON HER CHEST AND GENERALIZED PAIN. PT STATES THE PAIN AT A SCALE OF 10/10. PT WAS GIVEN MORPHINE FOR PAIN. BP WAS 125/75 PRIOR TO ADMINISTRATION OF MEDICATION. WILL MONITOR PAIN.
[2021-03-16] MEDS ORDERED: KETOROLAC 30 MG/ML VIAL IVP SCH (10:30)
--- NOTE | 2021-03-16 11:12 | NUR ---
ROUNDED ON PT. NO PAIN IS NOTED. PT IS SLEEPING. NO DISTRESS AT THIS TIME. PT STABLE.
[2021-03-16 12:00] VITALS: BP 121/76
--- NOTE | 2021-03-16 13:36 | NUR ---
PT IS SLEEPING. VISITOR AT BEDSIDE. CHEST RISE AND FALL SYMMETRICAL. NO PAIN NOTED. IV IS INFUSING ORDERED. PT IS STABLE.
--- NOTE | 2021-03-16 15:00 | NUR ---
PT IS SLEEPING. NO PAIN OR DISTRESS NOTED. BREATHING IS UNLABORED. IV FLUIDS ARE INFUSING ORDERED. BED IS IN THE LOWEST POSITION AND CALL LIGHT IS WITHIN REACH.
[2021-03-16 16:00] VITALS: BP 109/69
--- NOTE | 2021-03-16 17:00 | NUR ---
PT IS AWAKE, LAYING IN BED. DENIES PAIN. PT WAS GIVEN WATER REQUESTED. ANOTHER BLANKET GIVEN WELL. NEEDS HAVE BEEN MET. PT IS STABLE.
--- NOTE | 2021-03-16 18:53 | NUR ---
PT STATES SHE HAS PAIN AT A SCALE OF 10/10 IN HER ABDOMEN. ACHING IN CHARACTERISTIC. BP WAS 122/65 PRIOR TO ADMINISTRATION OF MEDICATION. WILL MONITOR PAIN.
--- NOTE | 2021-03-16 19:10 | NUR ---
ENDORSED PT TO DAY SHIFT NURSE FOR CONTINUITY OF CARE. PT IS AWAKE AND ALERT. PT STABLE AT THIS TIME. PLAN OF CARE DISCUSSED. Addendum: 03/16/21 at 1928 by Amanda Ramos RN TITLE VEHICLE SERVICE ATTENDANT NURSE
--- NOTE | 2021-03-16 19:15 | NUR ---
RECIEVED BEDSIDE ENDORSEMENT FROM DAY SHIFT RN, PT A&OX4, ABLE TO MAKE NEEDS KNOWN AND FOLLOWS SIMPLE COMMANDS, ABULATES TO URINAL W/ ASSISTANCE, ST ON MONITOR, ON ROOM AIR, VSS, FLACC 0, AFEBRILE, SKIH WARM DRY AND INTACT, LW 22 G PIV INFUSING NS @ 80MLS/HR, NO SIGNS OF ACUTE DISTRESS, SAFETY MEASURES IN PLACE, WILL CONTINUE WITH CURRENT POC
[2021-03-16 20:00] VITALS: BP 115/78
[2021-03-16] MEDS: METOPROLOL 25 MG TAB PO SCH (20:25)
--- NOTE | 2021-03-16 20:55 | NUR ---
PT VSS, ADMINISTERED 2100H MEDICAITONS PER MD ORDERS
--- NOTE | 2021-03-16 22:50 | NUR ---
UA VOID SAMPLE COLLECTED AND BROUGHT TO LAB
[2021-03-16 23:36] LABS: APPEARANCE,URINE CLOUDY (CLEAR); BILIRUBIN,URINE 1+ (NEGATIVE); BLOOD, URINE NEGATIVE (NEGATIVE); COLOR,URINE YELLOW (YELLOW); LEUKOCYTE ESTERASE ,URINE 1+ (NEGATIVE); NITRITE, URINE POSITIVE (NEGATIVE); UGLUCOSE NEGATIVE (NEGATIVE)
[2021-03-16 23:45] LABS: RBC,URINE 0-5 /HPF (0-5)
[2021-03-16 23:46] LABS: WBC,URINE 20-60 /HPF (0-5)
[2021-03-16 23:51] LABS: BARBITURATE, URINE NEGATIVE ng/ml (NEG <=200); BENZODIAZEPINE, URINE POSITIVE ng/mL (NEG <=200); CANNABINOID, URINE NEGATIVE ng/mL (NEG <=50); COCAINE, URINE NEGATIVE ng/mL (NEG <=300); OPIATE, URINE POSITIVE ng/mL (NEG <=2000); PHENCYCLIDINE SCREEN,URINE NEGATIVE ng/mL (NEG <=25)
[2021-03-17] VITALS: BP 118/83
--- NOTE | 2021-03-17 00:13 | NUR ---
PT APPEARS TO BE ASLEEP AND SHOWING NO SIGNS OF ACUTE DISTRESS
[2021-03-17] MEDS: MORPHINE SULFATE 2 MG/ML SYR IVP PRN ×2 (02:16→08:56)
--- NOTE | 2021-03-17 02:21 | NUR ---
PT PAIN HAVING ABDOMINAL PAIN PAIN SCALE 7/10, ADMINISTERED 1MG MORPHINE IVP
[2021-03-17 04:00] VITALS: BP 158/74
--- NOTE | 2021-03-17 04:12 | NUR ---
ASSISTED PT TO THE RESTROOM, MORNING CARE GIVEN, CHANGED LINEN
[2021-03-17] MEDS: HYDROcodone/APAP 5/325 MG 1 TAB TAB PO PRN (04:45)
--- NOTE | 2021-03-17 05:22 | NUR ---
PT ACCIDENTLY PULLED OUT PIV LINE, INSERTED NEW RH 22 G PIV, FLUSHED AND PATENT INFUSING NS @ 80MLS/HR
[2021-03-17 07:09] LABS: ANION GAP 10.2 (8-16); CARBON DIOXIDE 27.7 mmol/L (21-32); CREATININE 0.5 mg/dL (0.6-1.3); POTASSIUM 3.9 mmol/L (3.5-5.1)
[2021-03-17 07:10] LABS: BASOPHILS # (AUTO) 0.1 K/uL (0.00-0.22); BASOPHILS % (AUTO) 1.4 % (0.0-2.0); EOSINOPHILS # (AUTO) 0.2 K/uL (0-0.4); EOSINOPHILS % (AUTO) 4.3 % (0.0-4.0); HEMATOCRIT 34.6 % (36-48); HEMOGLOBIN 11.8 g/dL (12.0-16.0); LYMPHOCYTES # (AUTO) 0.8 K/uL (2.5-16.5); LYMPHOCYTES % (AUTO) 18.5 % (20.5-51.1); MEAN CORPUSCULAR HEMOGLOBIN 36 pg (27-31); MEAN CORPUSCULAR HGB CONC 34 g/dL (33-37); MEAN CORPUSCULAR VOLUME 104.9 fL (80-94); MONOCYTES # (AUTO) 0.3 K/uL (0.8-1.0); MONOCYTES % (AUTO) 7.2 % (1.7-9.3); NEUTROPHILS % (AUTO) 68.6 % (42.2-75.2); PLATELET COUNT (AUTO) 100 K/uL (140-450); RED BLOOD CELL COUNT(AUTO) 3.29 MIL/uL (4.20-5.40); RED CELL DISTRIBUTION WIDTH 12.5 % (11.6-13.7); WHITE BLOOD COUNT (AUTO) 4.3 K/uL (4.8-10.8)
[2021-03-17] MEDS ORDERED: NITR100C7 PO (07:23)
--- NOTE | 2021-03-17 07:23 | NUR ---
RECEIVED REPORT FROM BONDERIZER OPERATOR NURSE FOR CONTINUITY OF CARE. PATIENT IS AWAKE AND ALERT. BREATHING IS EVEN AND UNLABORED. PATIENT HAS R HAND 22 G WITH NS 80 ML/HR. ALL SAFETY MEASURES IN PLACE. WILL CONTINUE TO MONITOR.
[2021-03-17] MEDS ORDERED: THIA-34 PO (07:26)
[2021-03-17] MEDS ORDERED: MULT-405 PO (07:26)
[2021-03-17] MEDS ORDERED: METO25TA PO (07:26)
[2021-03-17] MEDS ORDERED: FOLI1TAB90 PO (07:26)
[2021-03-17] MEDS ORDERED: PANT40EC56 PO (07:26)
--- NOTE | 2021-03-17 07:30 | NUR ---
ENDORSED TO DAY SHIFT RN FOR CONTINUITY OF CARE
[2021-03-17 08:00] VITALS: BP 137/87
--- NOTE | 2021-03-17 08:50 | NUR ---
PATIENT IN BED EATING BREAKFAST. NO ACUTE CHANGES NOTED. ALL SAFETY MEASURES IN PLACE. WILL CONTINUE TO MONITOR.
[2021-03-17] MEDS ORDERED: IBUP-1842 PO (09:06)
[2021-03-17] MEDS: NACL 0.9% 1,000 ML IV SCH (09:08)
[2021-03-17] MEDS: FOLIC ACID 1 MG TAB PO SCH (09:15)
--- NOTE | 2021-03-17 09:15 | NUR ---
PATIENT AWAKE AND ALERT. BREATHING IS EVEN AND UNLABORED. PATIENT ROUTINE MEDICATION GIVEN BY STUDENT AND INSTRUCTOR. COMPLIANT WITH MEDICATION. ALL SAFETY MEASURES IN PLACE. WILL CONTINUE TO MONITOR.
[2021-03-17] MEDS: chlordiazePOXIDE 25 MG CAP PO SCH ×2 (09:17→14:07)
[2021-03-17] MEDS: METOPROLOL 25 MG TAB PO SCH (09:19)
[2021-03-17] MEDS: PANTOPRAZOLE 40 MG TABEC PO SCH (09:20)
[2021-03-17] MEDS: MULTIVITAMIN 1 TAB PO SCH (09:21)
[2021-03-17] MEDS: THIAMINE 100 MG TAB PO SCH (09:22)
--- NOTE | 2021-03-17 10:56 | NUR ---
PATIENT AWAKE IN BED. NO ACUTE DISTRESS NOTED. ALL SAFETY MEASURES IN PLACE. WILL CONTINUE TO MONITOR.
[2021-03-17 12:00] VITALS: BP 129/82
--- NOTE | 2021-03-17 12:15 | NUR ---
PATIENT SITTING UP IN BED HAVING LUNCH. NO ACUTE DISTRESS NOTED. ALL SAFETY MEASURES IN PLACE WILL CONTINUE TO MONITOR.
--- NOTE | 2021-03-17 13:05 | NUR ---
PATIENT ACCIDENTLY PULLED OUT IV. IV CATHETER INTACT. PATIENT TO BE DISCHARGED TODAY.
[2021-03-17 13:29] VITALS: BP 137/87
--- NOTE | 2021-03-17 15:15 | NUR ---
PATIENT DISCHARGE INFORMATION GIVE. PATIENT SIGNED ALL DOCUMENT. COPIES MADE FOR PATIENT. PATIENT VERBALIZE UNDERSTANDING. IV REMOVED. CATHETER INTACT. PATIENT TAKEN BY WHEELCHAIR TO THE FRONT LOBBY.
== END 2021-03-17 15:15 | disposition home or self-care (01) | DRG 203 ==
LOC: MED 09:20 → MTU 11:29
PROVIDERS: ADMIT Hospitalist; ATTEND Hospitalist
DX: M94.0 Chondrocostal junction syndrome [Tietze] (principal); G92 Toxic encephalopathy; E87.6 Hypokalemia; E86.0 Dehydration; R07.89 Other chest pain; I25.2 Old myocardial infarction; E83.42 Hypomagnesemia; F10.129 Alcohol abuse with intoxication, unspecified; I10 Essential (primary) hypertension; G40.909 Epilepsy, unspecified, not intractable, without status epilepticus; F17.210 Nicotine dependence, cigarettes, uncomplicated; Y90.8 Blood alcohol level of 240 mg/100 ml or more; K21.9 Gastro-esophageal reflux disease without esophagitis; R74.01 Elevation of levels of liver transaminase levels; N39.0 Urinary tract infection, site not specified; Z86.73 Personal history of transient ischemic attack (TIA), and cerebral infarction without residual deficits; Z82.5 Family history of asthma and other chronic lower respiratory diseases; Z80.41 Family history of malignant neoplasm of ovary; Z71.41 Alcohol abuse counseling and surveillance of alcoholic; Z71.6 Tobacco abuse counseling; Z71.51 Drug abuse counseling and surveillance of drug abuser; F15.90 Other stimulant use, unspecified, uncomplicated
CPT/HCPCS: 36415; 71045; 76705; 80048; 80053; 80305; 81001; 82140; 82150; 83690; 83735; 83880; 84100; 84484; 85025; 85610; 85730; 87081; 87086; 93005; 93308; 96365; 97112; 97163-GP; 99291; G0482; J0696; J1885; J2001; J2270; J3475; J3480; J7030; J7060

== ENCOUNTER 2021-06-11 20:28 | Emergency (ER) | payer MEDICAID ==
[~2021-06-11] VITALS: Ht 157.5 cm; Wt 60.8 kg
[~2021-06-11 20:28] MED LIST changes: -ASPI-1205 PO; -COLC0.6C PO; -FAMO-90 PO; +FOLI1TAB90 PO; +IBUP-1842 PO; -LISI5TAB18 PO; +METO25TA PO; +MULT-405 PO; +NITR100C7 PO; +PANT40EC56 PO; -PHEN100C3 PO; +THIA-34 PO; -THIA100T34 PO
[2021-06-11 21:24] VITALS: BP 110/86
[2021-06-11] MEDS ORDERED: ACYC-258 PO (23:31)
[2021-06-11] MEDS ORDERED: IBUP-2213 PO (23:31)
[2021-06-11 23:50] VITALS: BP 110/86
--- NOTE | 2021-06-11 23:50 | NUR ---
Note yesica in EDM - 06/12/21 at 0000 by [facility] Patient discharged with v/s stable. Written and verbal after care instructions given and explained. Patient verbalized understanding. Ambulatory with steady gait. All questions addressed prior to discharge. Advised to follow up with PMD.
--- NOTE | 2021-06-11 23:50 | NUR ---
Patient discharged with v/s stable. Written and verbal after care instructions given and explained. Patient alert, oriented and verbalized understanding of instructions. Ambulatory with steady gait. All questions addressed prior to discharge. ID band removed. Patient advised to follow up with PMD. Rx of acyclovir and ibuprofen given. Patient educated on indication of medication including possible reaction and side effects. Opportunity to ask questions provided and answered.
--- NOTE | 2021-06-11 23:50 | NUR ---
Dwaine robert in EDM - 06/12/21 at 0000 by ES PT SEEN BY MAYURI. NO NURSING INTERVENTIONS NEEDED
== END 2021-06-11 23:50 | disposition home or self-care (01) ==
LOC: MED 20:28
DX: B02.9 Zoster without complications (principal); J45.909 Unspecified asthma, uncomplicated; I10 Essential (primary) hypertension; Z86.73 Personal history of transient ischemic attack (TIA), and cerebral infarction without residual deficits; Z79.899 Other long term (current) drug therapy
CPT/HCPCS: 99283

== ENCOUNTER 2021-07-10 03:10 | Emergency (ER) | payer MEDICAID ==
[~2021-07-10] VITALS: Ht 157.5 cm; Wt 60.8 kg
[~2021-07-10 03:10] MED LIST changes: +ACYC-258 PO; +IBUP-2213 PO
[2021-07-10 03:26] VITALS: BP 102/73
--- NOTE | 2021-07-10 03:30 | NUR ---
PT IN TENT.
== END 2021-07-10 04:04 | disposition left against medical advice (07) ==
LOC: MED 03:10
DX: B02.9 Zoster without complications (principal); L29.9 Pruritus, unspecified; R21 Rash and other nonspecific skin eruption; Z53.21 Procedure and treatment not carried out due to patient leaving prior to being seen by health care provider

== ENCOUNTER 2021-07-21 08:51 | Emergency (ER) | payer MEDICAID ==
[~2021-07-21] VITALS: Ht 157.5 cm; Wt 58.1 kg
[2021-07-21 09:07] VITALS: BP 108/75
[2021-07-21 09:11] VITALS: BP 108/75
--- NOTE | 2021-07-21 09:11 | NUR ---
56yo f c/o rashes in whole body x 2 weeks. as per pt, her rashes started in the torso and spread all over body. (+)pruritus, (+)10/10 pain. applied calamine lotion with no relief. also reports subjective fever, cough, abdominal pain, vomiting. in ed, vss. aox4. clear breath sounds. skin is dry with multiple red lesions on upper and lower extremities and torso. no discharge noted. pt positioned in bed comfortably with 2 siderails up. ermd made aware of pt status. pmh: asthma, htn, seizure, cardiac dse meds: see list nka
--- NOTE | 2021-07-21 09:15 | NUR ---
PT STATED "I HAVE TO GO, THIS IS TAKING TOO LONG, I HAVE TO GO TAKE CARE OF MY DOG". PT LEFT ER. DR BYRNE MADE AWARE
--- NOTE | 2021-07-21 09:16 | NUR ---
PATIENT LEFT WITHOUT BEING SEEN BY DR. BYRNE. NO FURTHER CARE PROVIDED FOR PATIENT.
== END 2021-07-21 09:16 | disposition left against medical advice (07) ==
LOC: MED 08:51
DX: R21 Rash and other nonspecific skin eruption (principal); Z53.21 Procedure and treatment not carried out due to patient leaving prior to being seen by health care provider

== ENCOUNTER 2021-07-27 22:16 | Emergency (ER) | payer MEDICAID ==
[~2021-07-27] VITALS: Ht 154.9 cm; Wt 52.6 kg
[2021-07-27 22:24] VITALS: BP 118/94
--- NOTE | 2021-07-28 00:25 | NUR ---
PER LAYLA, FROM LAB, SHE CALLED FOR PT IN THE TENT AND DID NOT HEAR A RESPONSE.
--- NOTE | 2021-07-28 00:34 | NUR ---
MAILE FROM RADIOLOGY CALLED FOR PT IN THE TENT, NO RESPONSE.
--- NOTE | 2021-07-28 02:18 | NUR ---
ATTEMPTED TO CONTACT AT THIS TIME. PATIENT NOT IN LOBBY OR TENT. PATIENT LEFT PREMISES. ELOPMENT NOTED AT THIS TIME
--- NOTE | 2021-07-28 02:36 | NUR ---
CALLED NAME AT THIS TIME, NO ANSWER IN LOBBY OR OUTSIDE.
--- NOTE | 2021-07-28 02:36 | NUR ---
PATIENT ELOPED FROM FACILITY. DISCHARGE INSTRUCTIONS NOT GIVEN TO PATIENT. DR. HOLMAN NOTIFIED.
== END 2021-07-28 00:25 | disposition left against medical advice (07) ==
LOC: MED 22:16
DX: R07.9 Chest pain, unspecified (principal); R21 Rash and other nonspecific skin eruption; J45.909 Unspecified asthma, uncomplicated; I10 Essential (primary) hypertension; F17.200 Nicotine dependence, unspecified, uncomplicated; F15.90 Other stimulant use, unspecified, uncomplicated; Z79.899 Other long term (current) drug therapy; Z86.73 Personal history of transient ischemic attack (TIA), and cerebral infarction without residual deficits
CPT/HCPCS: 99281

== ENCOUNTER 2021-08-19 19:28 | Emergency (ER) | payer MEDICAID ==
[~2021-08-19] VITALS: Ht 157.5 cm; Wt 60.8 kg
[2021-08-19 19:47] VITALS: BP 133/76
--- NOTE | 2021-08-19 19:53 | NUR ---
PATIENT SENT TO [facility]
--- NOTE | 2021-08-19 21:45 | NUR ---
Called for patient no answer at this time
--- NOTE | 2021-08-19 22:30 | NUR ---
called for patient no answer at this time
--- NOTE | 2021-08-19 22:30 | NUR ---
PATIENT LEFT WITHOUT BEING SEEN BY DR. ABBOTT. NO FURTHER CARE PROVIDED FOR PATIENT.
== END 2021-08-19 22:30 | disposition left against medical advice (07) ==
LOC: MED 19:28
DX: R07.89 Other chest pain (principal); Z53.21 Procedure and treatment not carried out due to patient leaving prior to being seen by health care provider
CPT/HCPCS: 93005; 99281

== ENCOUNTER 2021-08-20 23:55 | Emergency (ER) | payer MEDICAID ==
[~2021-08-20] VITALS: Ht 157.5 cm; Wt 60.8 kg
[2021-08-21 00:03] VITALS: BP 108/82
[2021-08-21] MEDS ORDERED: HYD2.5O TP (01:14)
[2021-08-21 01:24] VITALS: BP 108/82
--- NOTE | 2021-08-21 01:25 | NUR ---
Patient discharged with v/s stable. Written and verbal after care instructions given and explained. Patient verbalized understanding. Ambulatory with steady gait. All questions addressed prior to discharge. Advised to follow up with PMD.
== END 2021-08-21 01:17 | disposition home or self-care (01) ==
LOC: MED 23:55
DX: L40.9 Psoriasis, unspecified (principal); J45.909 Unspecified asthma, uncomplicated; I10 Essential (primary) hypertension; F17.210 Nicotine dependence, cigarettes, uncomplicated; Z79.899 Other long term (current) drug therapy; Z86.73 Personal history of transient ischemic attack (TIA), and cerebral infarction without residual deficits
CPT/HCPCS: 99281

== ENCOUNTER 2021-08-28 12:53 | Emergency (ER) | payer MEDICAID ==
[~2021-08-28] VITALS: Ht 157.5 cm; Wt 59.5 kg
[~2021-08-28 12:53] MED LIST changes: +HYD2.5O TP
[2021-08-28 13:09] VITALS: BP 143/81
--- NOTE | 2021-08-28 13:15 | NUR ---
BIB SELF C/O RASH WHOLE BODY X 3 WEEKS. . SEEN HERE SAME S/S FOR PSORIASIS 08/22/21. PMH: ASTHMA, CARDIAC DISORDERS, HTN, SEIZURE , CVA
[2021-08-28] MEDS ORDERED: TRIA0.029 TP (13:37)
[2021-08-28] MEDS ORDERED: LORA10TA19 PO (13:37)
[2021-08-28] MEDS ORDERED: LORATADINE 10 MG TAB PO ONE (13:40)
--- NOTE | 2021-08-28 14:27 | NUR ---
Patient discharged with v/s stable. Written and verbal after care instructions given and explained. Patient alert, oriented and verbalized understanding of instructions. Ambulatory with steady gait. All questions addressed prior to discharge. ID band removed. Patient advised to follow up with PMD. Rx of CLARITIN & TRIAMCINOLONE ACETONIDE given. Patient educated on indication of medication including possible reaction and side effects. Opportunity to ask questions provided and answered.
[2021-08-28 14:28] VITALS: BP 119/78
[2021-09-02] MEDS ORDERED: methylPREDNISolone SS 125 MG in WATER STERILE 2 ML IM ONE (13:05)
[2021-09-02] MEDS ORDERED: methylPREDNISolone SS 125 MG/2 ML VIAL IM SCH (13:40)
== END 2021-08-28 14:27 | disposition home or self-care (01) ==
LOC: MED 12:53
DX: R21 Rash and other nonspecific skin eruption (principal); J45.909 Unspecified asthma, uncomplicated; I10 Essential (primary) hypertension; Z59.00 Homelessness unspecified; Z79.899 Other long term (current) drug therapy; Z86.73 Personal history of transient ischemic attack (TIA), and cerebral infarction without residual deficits
CPT/HCPCS: 99282; 99283

== ENCOUNTER 2021-09-02 11:56 | Emergency (ER) | payer MEDICAID ==
[~2021-09-02] VITALS: Ht 157.5 cm; Wt 56.9 kg
[~2021-09-02 11:56] MED LIST changes: +LORA10TA19 PO; +TRIA0.029 TP
[2021-09-02 12:24] VITALS: BP 119/76
[2021-09-02] MEDS ORDERED: PRED20TA5 PO (13:39)
[2021-09-02] MEDS ORDERED: HYDR28CR38 TP (13:39)
[2021-09-02] MEDS ORDERED: methylPREDNISolone SS 125 MG in WATER STERILE 2 ML IM ONE (13:40)
[2021-09-02 14:47] VITALS: BP 110/70
--- NOTE | 2021-09-02 14:52 | NUR ---
PATIENT CONDITION STABLE D/C HOME WITH INSTRUCTIONS AFTER CARE REVIEWED UNDERSTOOD. LEFT ER ALERT, ORIENTED X4 AMBULATORY WITH STEADY GAIT.
== END 2021-09-02 14:52 | disposition home or self-care (01) ==
LOC: MED 11:56
DX: R21 Rash and other nonspecific skin eruption (principal); L29.9 Pruritus, unspecified; J45.909 Unspecified asthma, uncomplicated; I11.9 Hypertensive heart disease without heart failure; Z86.73 Personal history of transient ischemic attack (TIA), and cerebral infarction without residual deficits
CPT/HCPCS: 96372; 99283

== ENCOUNTER 2021-12-09 19:58 | Emergency (ER) | payer MEDICAID ==
[~2021-12-09 19:58] MED LIST changes: +HYDR28CR38 TP; +PRED20TA5 PO
== END 2021-12-09 20:41 | disposition left against medical advice (07) ==
LOC: MED 19:58
DX: R07.9 Chest pain, unspecified (principal); Z53.21 Procedure and treatment not carried out due to patient leaving prior to being seen by health care provider

== ENCOUNTER 2022-03-24 00:25 | Emergency (ER) | payer MEDICAID ==
[~2022-03-24] VITALS: Ht 157.5 cm; Wt 63.5 kg
[2022-03-24 00:25] VITALS: BP 140/90
--- NOTE | 2022-03-24 00:25 | NUR ---
BIBA [facility] 6 WITH C/O ANXIETY, ARM PAIN, HAND, BACK, ABD PAIN.
[2022-03-24] MEDS ORDERED: NITROGLYCERIN 0.4 MG TAB SL ONE ×2 (00:50→02:12)
[2022-03-24] MEDS ORDERED: LORazepam 2 MG/ML VIAL IVP ONE (00:50)
[2022-03-24] MEDS ORDERED: ASPIRIN 325 MG TAB PO ONE (00:50)
[2022-03-24 01:35] LABS: BASOPHILS # (AUTO) 0.2 K/uL (0.00-0.22); BASOPHILS % (AUTO) 2.3 % (0.0-2.0); EOSINOPHILS % (AUTO) 0.6 % (0.0-4.0); HEMATOCRIT 39.3 % (36-48); HEMOGLOBIN 13.3 g/dL (12.0-16.0); LYMPHOCYTES # (AUTO) 1.3 K/uL (2.5-16.5); LYMPHOCYTES % (AUTO) 18.7 % (20.5-51.1); MEAN CORPUSCULAR HEMOGLOBIN 34 pg (27-31); MEAN CORPUSCULAR HGB CONC 34 g/dL (33-37); MEAN CORPUSCULAR VOLUME 99.8 fL (80-94); MONOCYTES # (AUTO) 0.5 K/uL (0.8-1.0); MONOCYTES % (AUTO) 7.8 % (1.7-9.3); NEUTROPHILS # (AUTO) 4.8 K/uL (1.8-7.7); NEUTROPHILS % (AUTO) 70.6 % (42.2-75.2); PLATELET COUNT (AUTO) 212 K/uL (140-450); RED BLOOD CELL COUNT(AUTO) 3.94 MIL/uL (4.20-5.40); RED CELL DISTRIBUTION WIDTH 12.6 % (11.6-13.7); WHITE BLOOD COUNT (AUTO) 6.8 K/uL (4.8-10.8)
[2022-03-24 01:46] LABS: ANION GAP 22.2 (8-16); CARBON DIOXIDE 28.8 mmol/L (21-32); CHLORIDE 97 mmol/L (98-107); CREATININE 0.8 mg/dL (0.6-1.3); GFR ARICAN-AMERICAN 95 mL/min (>90); GLUCOSE 116 mg/dL (74-106); SODIUM SERUM 144 mmol/L (136-145); UREA NITROGEN, BLOOD 6 mg/dL (7-18)
--- NOTE | 2022-03-24 01:54 | NUR ---
TAKEN TO BED 2 VIA W/C
[2022-03-24 02:05] LABS: TOTAL BILIRUBIN 1.3 mg/dL (0.0-1.0)
[2022-03-24 02:06] LABS: ALBUMIN 3.1 g/dL (3.4-5.0); ASPARTATE AMINOTRANSFERASE 338 U/L (15-37)
[2022-03-24] MEDS ORDERED: LORazepam 2 MG/ML VIAL ONE (02:11)
[2022-03-24] MEDS ORDERED: ASPIRIN 325 MG TAB ONE (02:12)
[2022-03-24] MEDS ORDERED: NACL 0.9% 1,000 ML IV ONE (02:30)
--- NOTE | 2022-03-24 02:30 | NUR ---
56/F BIBA FROM [facility] C/C ANXIETY S/P CONSUMING ALCOHOL PRIOR TO ARRIVAL. PATIENT STATED THAT SHE HAD RIGHT WRIST PAIN, DENIES TRAUMA OR INJURY TO THE HAND. PATINET ALSO C/O CP WHILE SITTING IN THE LOBBY PRESSURE NON RAD 01/19. MD AWARE. PATIENT IS AAOX4 AND AMBULATORY. RR APPEAR TO BE EVEN AND UNLABORED. APPEAR TO BE GUARING ARM AND DOENST WANT ANYONE TO BE TOUCHED. PATIENT ABLE TO MMOVE HAND. NO DISCOLORATION OR LACERATIONS NOTED. ALL NEEDS MET. PMHX SEIZURES, STROKE, ASTHMA, ALCOHOL ABUSE NKA
--- NOTE | 2022-03-24 03:00 | NUR ---
PATIENT ATTEMPTED TO GO TO THE AND URINATED ON THE WAY THERE. NO URINE COLLECTED AT THIS TIME. MD CLARK AWARE.
--- NOTE | 2022-03-24 03:35 | NUR ---
PATIENT LAYING IN BED SLEEPING. BED LOW AND LOCKED. ALL NEEDS MET.
--- NOTE | 2022-03-24 04:25 | NUR ---
MD CLARK STATED THAT HE DOESNT NEED URINE FROM PATIENT ANYMORE, SHE IS READY TO BE DISCHARGED.
--- NOTE | 2022-03-24 04:30 | NUR ---
IV removed, catheter intact and site benign. Applied folded 4x4 gauze and tape to stop bleeding.
[2022-03-24 04:35] VITALS: BP 107/70
--- NOTE | 2022-03-24 04:35 | NUR ---
Patient discharged with v/s stable. Written and verbal after care instructions given and explained. Patient verbalized understanding. Ambulatory with steady gait. Advised to follow up with PMD.
--- NOTE | 2022-03-24 04:40 | NUR ---
Chart checked and completed.
--- NOTE | 2022-03-24 05:39 | NUR ---
Dwaine robert in ED - 03/24/22 at 0539 by SHEA Patient discharged with v/s stable. Written and verbal after care instructions given and explained. Patient verbalized understanding. Ambulatory with steady gait.Advised to follow up with PMD.
== END 2022-03-24 04:35 | disposition home or self-care (01) ==
LOC: MED 00:25
DX: S49.91XA Unspecified injury of right shoulder and upper arm, initial encounter (principal); F41.9 Anxiety disorder, unspecified; R07.89 Other chest pain; J45.909 Unspecified asthma, uncomplicated; I10 Essential (primary) hypertension; Z86.73 Personal history of transient ischemic attack (TIA), and cerebral infarction without residual deficits; Z79.899 Other long term (current) drug therapy; X58.XXXA Exposure to other specified factors, initial encounter; Y93.89 Activity, other specified; Y92.89 Other specified places as the place of occurrence of the external cause; Y99.8 Other external cause status
CPT/HCPCS: 36415; 71045; 73110; 80053; 84484; 85025; 93005; 96361; 96374; 99285; G0482; J2060; J7030; Q0092